=== PATIENT | male | born 1950 | race African-American/Black ===

== ENCOUNTER 2017-10-16 08:34 | Inpatient (IN) | payer OTHER ==
[2017-10-03 15:29] VITALS: BMI 29.0
--- NOTE | 2017-10-07 13:42 | HP ---
HISTORY OF PRESENT ILLNESS patient is a 67-year-old male, with a past medical history of hypertension, HIV positive for 21 years, and osteoarthritis. Patient presents for an elective right total knee replacement. PCP: Dr Williamson Recent travel: none Family History: of "old age" Social History: retired resides at home with Smoking: none Alcohol: none Drugs: none REVIEW OF SYSTEMS CONSTITUTIONAL: Absent: fever, chills, diaphoresis, generalized weakness, malaise, loss of appetite, weight change HEENT: Absent: rhinorrhea, nasal congestion, throat pain, throat swelling, difficulty swallowing, mouth swelling, ear pain, eye pain, visual changes CARDIOVASCULAR: Absent: chest pain, syncope, palpitations, irregular heart rate, lightheadedness , peripheral edema RESPIRATORY: Absent: cough, shortness of breath, dyspnea with exertion, orthopnea, wheezing, stridor, hemoptysis GASTROINTESTINAL: Absent: abdominal pain, abdominal distension, nausea, vomiting, diarrhea, constipation, melena, hematochezia GENITOURINARY: Absent: dysuria, frequency, urgency, hesitancy, hematuria, flank pain, genital pain MUSCULOSKELETAL: Absent: myalgia, arthralgia, joint swelling, back pain, neck pain SKIN: Absent: rash, itching, pallor HEMATOLOGIC/IMMUNOLOGIC: Absent: easy bleeding, easy bruising, lymphadenopathy, frequent infections ENDOCRINE: Absent: unexplained weight gain, unexplained weight loss, heat intolerance, cold intolerance NEUROLOGIC: Absent: headache, focal weakness or paresthesias, dizziness, unsteady gait, seizure, mental status changes, bladder or bowel incontinence PSYCHIATRIC: Absent: anxiety, depression, suicidal or homicidal ideation, hallucinations. PHYSICAL EXAMINATION: GENERAL: Awake, alert, and fully oriented, in no acute distress. HEAD: Normal with no signs of trauma. EYES: Pupils equal, round and reactive to light, extraocular movements intact, sclera anicteric, conjunctiva clear. No lid lag. EARS, NOSE, THROAT: Ears normal, nares patent, oropharynx clear without exudates. Moist mucous membranes. NECK: Normal range of motion, supple without lymphadenopathy, JVD, or masses. LUNGS: Breath sounds equal, clear to auscultation bilaterally. No wheezes, and no crackles. No accessory muscle use. HEART: Regular rate and rhythm, normal S1 and S2 without murmur, rub or gallop. ABDOMEN: Soft, nontender, not distended, normoactive bowel sounds, no guarding, no rebound, no masses. No hepatomegaly or splenomegaly. MUSCULOSKELETAL: Normal range of motion at all joints. No bony deformities or tenderness. No CVA tenderness. UPPER EXTREMITIES: 2+ pulses, warm, well-perfused. No cyanosis. No clubbing. No peripheral edema. LOWER EXTREMITIES: 2+ pulses, warm, well-perfused. No calf tenderness. No peripheral edema. RIGHT LOWER EXTREMITY: no erythema, warm to touch, pain upon flexion and extension of knee w/crepitus NEUROLOGICAL: Cranial nerves II-XII intact. Normal speech. Normal gait. PSYCHIATRIC: Cooperative. Good eye contact. Appropriate mood and affect. SKIN: Warm, dry, normal turgor, no rashes or lesions noted, normal capillary refill. ASSESSMENT/PLAN: 1) right knee replacement - scheduled for 10/16/17 2) ID HIV positive for 21 years - pt report viral load is undetectable -continue prezocibx and and desocy 3) card hypertension -continue cardizem
[~2017-10-16 08:34] MED LIST: CEFAZOLIN 2 GM/D5W 2 GM/50 ML ML IVPB ONE; VANCOMYCIN 1,250 MG in DEXTROSE 5%-WATER - 250 ML IVPB ONE
[2017-10-16] MEDS: oxyCODONE HCL 10 MG SUSTAINED ACTING TABLET PO ONE ×2 (10:00→18:19)
[2017-10-16] MEDS ORDERED: MIDAZOLAM HCL 2 MG/2 ML SINGLE DOSE VIAL ONE ×2 (10:41→15:46)
[2017-10-16] MEDS ORDERED: BUPIVACAINE HCL/PF (5 MG/ML) 30 ML VIAL IJ ONE (10:41)
[2017-10-16] MEDS ORDERED: BUPIVACAINE LIPOSOME/PF (EXPAREL) 266 MG/20 ML VIAL ONE (10:41)
[2017-10-16] MEDS ORDERED: SODIUM CHLORIDE 0.9% P/F 10 ML VIAL IJ ONE (10:41)
[2017-10-16] MEDS ORDERED: PROPOFOL 20 ML ONE (11:00)
[2017-10-16] MEDS ORDERED: VANCOMYCIN 1,000 MG VIAL (RESTRICTED TO ID ONLY) ONE (11:00)
[2017-10-16] MEDS ORDERED: ceFAZolin SODIUM 1 GM VIAL ONE ×2 (11:00→15:46)
[2017-10-16] MEDS ORDERED: BENZOIN/ALOE VERA/STORAX/TOLU 58 ML BOTTLE ONE (12:27)
--- NOTE | 2017-10-16 16:00 | PN ---
Progress Note (short form) - Note Progress Note: 67M s/p RIGHT TKA POD #0. -Pain control. -DVT PPx: -Chemical: ASA 81mg PO BID x 6 weeks. -Mechanical: SCD's, EVELIA's. -Incentive spirometry. -PT/OT/Rehab, OOB. -WBAT B/L LE. -f/u AM labs. -f/u trial of void. -Diet as tolerated. -Care per medical hospitalist team. -Discharge planning: f/u [facility] [place] Office Saturday10/25/2017; call for appointment: . -Will follow. Arnie Oropeza MD (Orthopaedic Surgery).
--- NOTE | 2017-10-16 16:01 | OP ---
Operative Note - Note: Operative Date: 10/16/17 Pre-Operative Diagnosis: R knee DJD Operation: R TKA via subvastus approach Post-Operative Diagnosis: Same as Pre-op Surgeon: Arnie Oropeza Rf Microwave Engineer: Zeyad Oropeza Anesthesiologist/EDITING CLERK: Umair Donnelly Anesthesia: Spinal Specimens Removed: Bone, soft tissue Estimated Blood Loss (mls): 75 Drains & Tubes with Location: 1 x deep HemoVac Fluid Volume Replaced (mls): 1,000 Operative Report Dictated: Yes
[2017-10-16] MEDS ORDERED: ONDANSETRON 4 MG/2 ML VIAL IVPUSH PRN ×2 (16:02→17:29)
[2017-10-16] MEDS ORDERED: MAG HYDROX/AL HYDROX/SIMETH 30 ML UNIT-DOSE CUP PO PRN (16:02)
[2017-10-16] MEDS ORDERED: MAGNESIUM HYDROX 2400MG/30ML ORAL SUSPENSION 30 ML CUP PO PRN (16:02)
[2017-10-16] MEDS ORDERED: LACTATED RINGERS SOLUTION 1,000 ML IV SCH (16:30)
[2017-10-16] MEDS ORDERED: ACETAMINOPHEN 325 MG TABLET (FP) PO SCH (17:00)
[2017-10-16] MEDS ORDERED: ACETAMINOPHEN 325 MG TABLET (FP) ONE (17:07)
[2017-10-16] MEDS ORDERED: ACETAMINOPHEN 325 MG TABLET (FP) PO ONE (17:10)
[2017-10-16] MEDS ORDERED: PROMETHAZINE HCL 25 MG/1 ML VIAL IVPUSH PRN (17:29)
[2017-10-16] MEDS ORDERED: oxyCODONE HCL 5 MG TABLET PO PRN (17:29)
[2017-10-16] MEDS ORDERED: TRANEXAMIC ACID 1000 MG/10 ML VIAL IVPUSH ONE (18:15)
[2017-10-16] MEDS: oxyCODONE HCL 5 MG TABLET PO PRN (19:20)
[2017-10-16] MEDS: SENNOSIDES/DOCUSATE COMBO (SENNA PLUS) TABLET (UD) PO SCH (21:24)
[2017-10-16] MEDS: oxyCODONE HCL 10 MG SUSTAINED ACTING TABLET PO SCH (21:25)
[2017-10-16] MEDS: ASPIRIN COATED 81 MG TABLET.EC PO SCH (21:25)
[2017-10-16] MEDS: CEFAZOLIN 2 GM/D5W 2 GM/50 ML ML IVPB SCH (23:32)
[2017-10-16] MEDS: ACETAMINOPHEN 325 MG TABLET (FP) PO SCH (23:32)
[2017-10-17] MEDS: ACETAMINOPHEN 325 MG TABLET (FP) PO SCH ×4 (05:00→22:08)
[2017-10-17] MEDS: oxyCODONE HCL 5 MG TABLET PO PRN ×2 (05:30→16:27)
[2017-10-17] MEDS: CEFAZOLIN 2 GM/D5W 2 GM/50 ML ML IVPB SCH (06:41)
--- NOTE | 2017-10-17 07:05 | OP ---
DATE OF OPERATION: 10/16/2017 SURGEON: Arnie Oropeza M.D. GROUP HOME SUPERVISOR: Zeyad Oropeza M.D., Aashish Mallory PREOPERATIVE DIAGNOSIS: Tricompartmental osteoarthritis with fixed flex knee deformity right knee. POSTOPERATIVE DIAGNOSIS: Tricompartmental osteoarthritis with fixed flex knee deformity right knee. OPERATION PERFORMED: Right cemented posterior stabilized total knee arthroplasty ([employer]). ANESTHESIA: Adductor block with epidural anesthesia and conscious sedation. ANTIBIOTICS GIVEN: 2 g Kefzol, 1 g vancomycin preoperative, 1 g Kefzol given at the time of release of tourniquet. TOURNIQUET TIME: 90 minutes. OPERATION IN DETAIL: With the patient in supine position, the right lower extremity was prepped, free draped in a routine manner with Betadine scrub solution, wiped with alcohol, Duraprep applied. Midline incision was utilized. Dissection was taken at the proximal tibia for a subvastus approach. The course of this was then turned medially and posteriorly, leaving a cuff of tissue on the distal end of the vastus medialis for reattachment purposes. The dissection was taken right down to the medial side of the femur as well as along linea aspera, lifting up the entire vastus medialis and patella as a subvastus complete unit. The knee was flexed and noted severe tricompartment osteoarthritis. The patella was cut free, and along the Whitesides line, this was a subvastus approach in order to cut the patella, an inferiorly and superiorly placed towel clip clamp was performed. The cut was made from patella ligament to quadriceps tendon to receive a size 27 mm patella button. The lugholes off the lollipop jig were appropriately cut. The tibia was then subluxed anteriorly. The tibial cut was made to neutral and the femoral bone cuts were made with the appropriate jig system. The polyethylene measured size 6, and the universal baseplate size 6, size 27 mm polyethylene liner applied, and the TS polyethylene 6.9 mm inserted. All bone cuts were made with the appropriate earthmine jig system. The knee was balanced with equal flexion, extension gap. The medial release was performed in order to achieve an even rectangular appearance. Once all bone cuts had been made, cementing was in one stage after thorough lavage of the entire bony surface. This brought about solid fixation of the femur, tibia, and patella as noted above. A size 9 x 6 mm TS polyethylene inserted for stability purposes. The wounds were thoroughly lavaged. All extraneous cement was removed. Negative thumb test was achieved, but because of slight tilting of the patella, a small lateral release was performed accordingly. After removal of all extraneous cement and thorough lavage of the tissues, the tissues were closed as follows: The medial soft tissues along the distal margins of the vastus medialis were sutured. The remaining tissues were closed with 1 Vicryl along the medial side of the tibia. The wounds were thoroughly lavaged. The knee was placed through full range of movement from 0 to 120 degrees, complete stability in the coronal sagittal plane, and the remaining tissues were closed as follows: subcutaneous 2-0 Vicryl, 3-0 Vicryl, and skin 3-0 Monocryl with Steri-Strips. Drainage, one 8-inch Hemovac deep x1. No complications. Postoperative x-rays were excellent for mobilization within range of comfort. MD ROSI Marie/[id number]
[2017-10-17 09:18] LABS: HEMATOCRIT 43.2 % (35.4-49); HEMOGLOBIN 14.2 GM/dl (11.7-16.9); MCH 27.2 pg (25.7-33.7); MCHC 32.8 g/dl (32.0-35.9); MEAN PLT VOLUME 9.2 fl (7.5-11.1); PLATELET COUNT 245 K/MM3 (134-434); RBC 5.21 M/mm3 (4.00-5.60); RDW 13.8 % (11.9-15.9); WHITE BLOOD COUNT 11.9 K/mm3 (4.0-10.8)
--- NOTE | 2017-10-17 09:18 | PN ---
Progress Note (short form) - Note Progress Note: surgery POD #1 right TKA patient seen and examined at bedside. Patient states he had a fair amount of pain last night made worse with movement. Patient Denies any CP, SOB, N/V, Fever or chills. Patient plans to go home with VNS. Vital Signs Temp 98.7 F 10/17/17 06:00 Pulse 96 H 10/17/17 06:00 Resp 19 10/17/17 06:00 BP 120/54 10/17/17 06:00 Pulse Ox 98 10/17/17 08:32 Intake & Output 10/16/17 10/16/17 10/17/17 11:59 23:59 11:59 Intake Total 2150 Output Total 1115 100 Balance 1035 -100 Weight 180 lb Intake: IV 1650 Lactated Ringers Solution 100 1,000 ml @ 100 mls/hr IV ASDIR [place] Rx#: [id number] Oral 500 Output: Drainage 115 100 Right Knee 60 100 Urine 1000 Void 700 Other: Voiding Method Urinal Urinal Bowel Movement No Height 5 ft 6 in Body Mass Index (BMI) 29.0 Weight Measurement Method Standing Scale PE: A&Ox3, NAD unlabored resp on RA right knee dressing C/D/I with drain in place. diffuse edema throughout appropriate to status. ROM from 0-30 degrees. b/l LE compartments soft, supple and non-tender to palpation with + 2 pedal pulses b/l Dorsi/plantar flexion 5/5. Problem List - Problems (1) S/P total knee arthroplasty Assessment/Plan: POD #1 TONYA doing well. 1) continue DVT prophylaxis with Aspirin 81mg BID x 6 weeks 2) OOB with walker and assist WBAT 3) encourage IS 4) D/c planning for home potentially tomorrow after drain removed. Code(s): Z96.659 - PRESENCE OF UNSPECIFIED ARTIFICIAL KNEE JOINT
[2017-10-17 09:25] LABS: ANION GAP 7 (8-16); BLOOD UREA NITROGEN 14 mg/dl (7-18); CALCIUM 8.4 mg/dl (8.4-10.2); CHLORIDE 100 mmol/L (98-107); CO2 28 mmol/L (22-28); CREATININE 1.1 mg/dl (0.6-1.3); GLUCOSE,RANDOM 234 mg/dl (74-106); POTASSIUM 4.5 mmol/L (3.5-5.1); SODIUM 135 mmol/L (136-145)
[2017-10-17] MEDS: SENNOSIDES/DOCUSATE COMBO (SENNA PLUS) TABLET (UD) PO SCH ×2 (09:44→22:07)
[2017-10-17] MEDS: PANTOPRAZOLE 40 MG TABLET (FP) PO SCH (09:44)
[2017-10-17] MEDS: ASPIRIN COATED 81 MG TABLET.EC PO SCH ×2 (09:44→22:07)
[2017-10-17] MEDS: oxyCODONE HCL 10 MG SUSTAINED ACTING TABLET PO SCH ×2 (09:45→22:07)
[2017-10-17] MEDS ORDERED: PT OWN MED DRAWER 7, Y5N ONE (09:54)
[2017-10-18] MEDS: ACETAMINOPHEN 325 MG TABLET (FP) PO SCH ×2 (06:13→11:54)
[2017-10-18 08:18] LABS: HEMOGLOBIN 13.1 GM/dl (11.7-16.9); PLATELET COUNT 215 K/MM3 (134-434); WHITE BLOOD COUNT 15.1 K/mm3 (4.0-10.8)
[2017-10-18 08:21] LABS: MCHC 32.8 g/dl (32.0-35.9); MEAN CELL VOLUME 82.3 fl (80-96); MEAN PLT VOLUME 8.8 fl (7.5-11.1); RBC 4.86 M/mm3 (4.00-5.60); RDW 13.6 % (11.9-15.9)
[2017-10-18] MEDS ORDERED: PT OWN MED DRAWER 7, Y5N ONE (09:12)
[2017-10-18 09:48] VITALS: BP 112/60; PULSE 60; TEMP 98.6
[2017-10-18] MEDS: PANTOPRAZOLE 40 MG TABLET (FP) PO SCH (09:50)
[2017-10-18] MEDS: ASPIRIN COATED 81 MG TABLET.EC PO SCH (09:50)
[2017-10-18] MEDS: SENNOSIDES/DOCUSATE COMBO (SENNA PLUS) TABLET (UD) PO SCH (09:50)
[2017-10-18] MEDS: oxyCODONE HCL 10 MG SUSTAINED ACTING TABLET PO SCH (09:50)
--- NOTE | 2017-10-18 12:03 | DS ---
"Physical Exam: SUBJECTIVE: Patient seen and examined, patient is ambulatory throughout nursing station with walker, at bedside, he denies any chest pain or shortness of breath reports intermittent pain to the right lower extremity that is well controlled with pain medication, patient denies any paresthesia to the extremity. OBJECTIVE:patient is a 67-year-old male, with a past medical history of hypertension, HIV positive for 21 years, and osteoarthritis. Patient is s/p right total knee replacement, Dr Oropeza on 10/16/17, spinal anesthesia. Vital Signs Period Temp Pulse Resp BP Sys/Velasquez Pulse Ox Last 24 Hr 98.1 F-98.7 F 60-86 18-19 112-143/54-66 91-96 PHYSICAL EXAM GENERAL: The patient is awake, alert, and fully oriented, in no acute distress. HEAD: Normal with no signs of trauma. EYES: PERRL, extraocular movements intact, sclera anicteric, conjunctiva clear. ENT: Ears normal, nares patent, oropharynx clear without exudates, moist mucous membranes. NECK: Trachea midline, full range of motion, supple. LUNGS: Breath sounds equal, clear to auscultation bilaterally, no wheezes, no crackles, no accessory muscle use. HEART: Regular rate and rhythm, S1, S2 without murmur, rub or gallop. ABDOMEN: Soft, nontender, nondistended, normoactive bowel sounds, no guarding, no rebound, no hepatosplenomegaly, no masses. EXTREMITIES: 2+ pulses, warm, well-perfused, no edema. RIGHT LOWER EXTREMITY: scd/mayank, dressing cdi, less than 3 second capillary refill, +3 pedal pulse, patient is able to move the digits of the foot without any difficulty NEUROLOGICAL: Cranial nerves II through XII grossly intact. Normal speech, gait not observed. PSYCH: Normal mood, normal affect. SKIN: Warm, dry, normal turgor, no rashes or lesions noted. LABS Laboratory Results - last 24 hr 10/18/17 08:00 WBC 15.1 H RBC 4.86 Hgb 13.1 Hct 40.0 MCV 82.3 MCH 27.0 MCHC 32.8 RDW 13.6 Plt Count 215 MPV 8.8 HOSPITAL COURSE: Patient was admitted to the medical surgical floor after an elective right total knee replacement, 10/16/17, spinal anesthesia. patient ambulated the hallway without any difficulty with physical therapy. Home physical therapy recommended. Pain was controlled with non-narcotic and narcotic pain medications. On post operative day 2, hemovac drain was removed, intact and patient tolerated procedure well. he has a past medical history of hypertension , cardizem (home medication) was continued throughout admission. Patient's blood pressure remained at goal. PLAN - discharge home with vns and physical therapy Date of Admission:10/16/17 Date of Discharge: 10/18/17 Minutes to complete discharge: 45 Discharge Summary Reason For Visit: BILATERAL OA KNEES Current Active Problems S/P total knee arthroplasty (Acute) Condition: Improved - Instructions Diet, Activity, Other Instructions: Dr. Oropeza Discharge instructions for Knee Replacement Post-Op Instructions: Physical Activity: Physical Therapy will come to your home for the first 5 days. You will be set up with outpatient PT at your first post-operative visit. Use assistive devices for ambulation at all times. Weight bearing as tolerated on your surgical side. Do not put pillows under your knee. You may place pillows under the heel. Wound care: Leave your surgical dressing in place. Do not change the dressing until seen by your surgeon in the office. No baths, you may shower. Do not submerge your incision in water. Do not apply any ointments or lotions to your incision. Please call the office if our dressing is soiled/dirty or is falling off. Apply graduated compression stockings (TEDS) to both lower extremities-remove daily for hygiene only. Diet: There are no dietary restrictions: Eat healthy, high-fiber foods. Drink 6 to 8 glasses of liquid each day. This will keep your bowels regular. Pain Management: Any pain prescription medications ordered should be taken as prescribed for moderate to severe pain. Do not take additional Tylenol while taking Percocet. TAKE ASPIRIN 81MG TWO TIMES A DAY FOR A TOTAL OF 6 WEEKS TO PREVENT BLOOD CLOTS. Call Dr. Oropeza for any of the following: Severe pain not relieved by medications Fever of 101 or higher Excessive bleeding or drainage on the dressing If you experience chest pain or shortness of breath, please seek emergency care immediately. Please call the office at to confirm your post-op appointment for the week following your surgery. CT prescription monitoring program This report was requested by: Adriana Szymanski | Reference #: [id number] Referrals: Zeyad Oropeza MD [Staff Physician] - 10/24/17 Disposition: VNS/HOME HEALTH CARE - Home Medications Comprehensive Discharge Medication List: Ambulatory Orders Darunavir/Cobicistat [Prezcobix 800 mg-150 mg Tablet] 1 each PO DAILY 10/03/17 Diltiazem Cd [Cardizem Cd -] 120 mg PO DAILY 10/03/17 Emtricitabine/Tenofov Alafenam [Descovy 200-25 mg Tablet (Nf)] 1 each PO DAILY 10/03/17 Acetaminophen [Tylenol -] 500 mg PO Q4H PRN 10/16/17 oxyCODONE HCL [Roxicodone -] 5 - 10 mg PO Q4H PRN #30 tablet MDD 6 10/17/17 This patient is new to me today: No Emergency Visit: No Critical Care patient: No - Discharge Referral Referred to [facility] No"
--- NOTE | 2017-10-24 15:19 | PATH ---
Surgical Pathology Report Patient Name: MACKENZIE GARRETT Med. Rec. #: [id number] /Age/Gender: 1950 (Age: 67) / M Account: [id number] Location: [facility] Taken: 10/16/2017 Received: 10/16/2017 Reported: 10/24/2017 Physicians: Arnie Oropeza M.D. Specimen(s) Received A: RIGHT KNEE SYNOVIUM B: BONE RIGHT KNEE Clinical History Right knee osteoarthritis Final Diagnosis A. SYNOVIUM, RIGHT KNEE, EXCISION: SYNOVIUM SHOWING CHRONIC INFLAMMATION, FOCI OF OLD HEMORRHAGE AND REACTIVE HYPERPLASIA. B. BONE, RIGHT KNEE, TOTAL KNEE REPLACEMENT: DEGENERATIVE JOINT DISEASE. Electronically Signed Adriana Martinez M.D. Gross Description A. Received in formalin labeled "right knee synovium," is a 6.5 x 5.8 x 1.3 cm aggregate of multiple dhaliwal-yellow to brown portions of soft tissue, consistent with synovial tissue. Grain Elevator Motor Starter sections are submitted in one cassette. B. Received in formalin labeled "bone right knee," is a 15.0 x 11.5 x 2.0 cm aggregate of multiple portions of bone and soft tissue, consistent with knee bones. There are no areas of eburnation identified. The articular surfaces are dhaliwal-yellow and focally granular. The underlying trabecular bone is yellow and hard. Grain Elevator Motor Starter sections are submitted in one cassette, following decalcification. 10/18/201710/18/2017
== END 2017-10-18 12:30 | disposition home health service (06) | DRG 470 ==
LOC: FM/S 08:34
PROVIDERS: ADMIT Orthopaedic Surgery Orthopaedic Surgery of the Spine; ATTEND Orthopaedic Surgery Orthopaedic Surgery of the Spine
PROC: 0SRC069 Replacement of Right Knee Joint with Oxidized Zirconium on Polyethylene Synthetic Substitute, Cemented, Open Approach (ICD-10-PCS; principal; 2017-10-16 13:48)
DX: M17.11 Unilateral primary osteoarthritis, right knee (principal)
CPT/HCPCS: 36415; 73560-TC-RT-FY; 80048; 85027; 88304-TC; 88311-TC; 94760; 97116-GP